=== PATIENT | male | born 1960 | race Caucasian/White ===

== ENCOUNTER 2017-11-30 22:34 | Inpatient (IN) | payer OTHER ==
[2017-11-30 22:43] VITALS: BP 128/75; PULSE 106; RESP 16; TEMP 97.7; O2SAT 100
[2017-11-30] MEDS ORDERED: PROC90TA PO (22:56)
[2017-11-30] MEDS ORDERED: SODIUM CHLORIDE 0.9% FLUSH 10 ML FLUSH IVF PRN (23:00)
[2017-11-30] MEDS ORDERED: SODIUM CHLOR 0.9% 250 ML INJ 250 ML IV ONE (23:00)
[2017-11-30 23:24] VITALS: RESP 16; O2SAT 98
[2017-11-30] MEDS: SODIUM CHLOR 0.9% 1000 ML INJ 1,000 ML IV SCH (23:24)
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
[2017-12-01] VITALS (7 sets, daily range): BP systolic 113–132; BP diastolic 65–78; PULSE 80–107; RESP 16–20; TEMP 98.5–98.7; O2SAT 93–100
[2017-12-01 00:27] LABS: HEMATOCRIT 21.5 % (39.0-51.0)
[2017-12-01 00:33] LABS: HEMOGLOBIN 6.8 GM/DL (13.0-17.0)
[2017-12-01 00:43] LABS: BICARBONATE 30.8 MEQ/L (21.0-32.0); BLOOD UREA NITROGEN 5 MG/DL (7-18); CALCIUM 7.6 MG/DL (8.5-10.1); CHLORIDE 96 MEQ/L (98-107); CREATININE 0.44 MG/DL (0.60-1.30); GLOMERULAR FILTRATION RATE 198 ML/MIN (>89); GLUCOSE,RANDOM 118 MG/DL (74-106); SODIUM (NA) 133 MEQ/L (136-145)
[2017-12-01 00:45] LABS: INTERNATIONAL NORMALIZED RATIO 1.1 RATIO; PROTHROMBIN TIME - PATIENT 11.2 SEC (9.8-11.6)
[2017-12-01] MEDS: SODIUM CHLOR 0.9% 1000 ML INJ 1,000 ML IV SCH ×4 (02:37→21:16)
[2017-12-01] MEDS ORDERED: ONDANSETRON HCL 4 MG/2 ML VIAL IV PUSH ONE (03:30)
[2017-12-01] MEDS ORDERED: MORPHINE SULFATE 2 MG/ML INJ IV PUSH ONE (03:30)
[2017-12-01] MEDS ORDERED: IOHEXOL 350 MG/ML 10 ML VIAL (for RAD DIAG) IVCONTRAST ONE (04:18)
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
[2017-12-01] MEDS ORDERED: ACETAMINOPHEN 325 MG TAB PO PRN (06:00)
[2017-12-01] MEDS ORDERED: LORazepam 2 MG/ML VIAL IV PUSH PRN ×4 (06:00)
[2017-12-01] MEDS ORDERED: FLUMAZENIL 0.5 MG/5 ML VIAL IV PUSH PRN (06:00)
[2017-12-01] MEDS ORDERED: LORazepam 1 MG TAB PO PRN (06:00)
[2017-12-01] MEDS ORDERED: ceFAZolin 2 GM PREMIX 50 ML IV ONE (06:00)
[2017-12-01] MEDS ORDERED: LACTULOSE SYRUP 20 GM/30 ML CUP PO PRN (06:00)
[2017-12-01] MEDS ORDERED: GENTAMICIN 80 MG PREMIX 100 ML IV ONE (06:00)
[2017-12-01] MEDS ORDERED: BISACODYL 10 MG SUPP RECTAL PRN (06:00)
[2017-12-01] MEDS ORDERED: MAGNESIUM HYDROXIDE SUSP 30 ML CUP PO PRN (06:00)
[2017-12-01] MEDS ORDERED: SENNOSIDES 8.6 MG TAB PO PRN (06:00)
[2017-12-01] MEDS ORDERED: SODIUM CHLORIDE 0.9% FLUSH 10 ML FLUSH IV FLUSH PRN (06:00)
[2017-12-01] MEDS ORDERED: ONDANSETRON HCL 4 MG/2 ML VIAL IVP PRN (06:00)
[2017-12-01] MEDS ORDERED: LORazepam 2 MG TAB PO PRN (06:00)
[2017-12-01] MEDS ORDERED: HALOPERIDOL LACTATE 5 MG/ML AMP IM PRN (06:00)
[2017-12-01] MEDS ORDERED: LIDOCAINE HCL 1% PF 30 ML VIAL INFIL ONE (06:45)
[2017-12-01] MEDS ORDERED: LIDOCAINE HCL 1% PF 10 ML VIAL INFIL ONE (06:45)
[2017-12-01] MEDS: ACETAMINOPHEN/HYDROcodone 325 MG/5 MG TAB PO PRN (06:55)
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
[2017-12-01] MEDS ORDERED: NIFEdipine 60 MG SUSTAINED RELEASE TAB PO ONE (10:00)
[2017-12-01] MEDS: DOCUSATE SODIUM 50 MG/SENNA 8.6 MG TAB PO SCH ×2 (13:36→21:14)
[2017-12-01] MEDS: FOLIC ACID 1 MG TAB PO SCH (13:37)
[2017-12-01] MEDS: THIAMINE HCL 100 MG TAB PO SCH (13:37)
[2017-12-01] MEDS: MULTIVITAMINS/MINERALS THERAPEUTIC TAB PO SCH (13:37)
[2017-12-01] MEDS: SODIUM CHLORIDE 0.9% FLUSH 10 ML FLUSH IV FLUSH SCH ×2 (13:39→21:15)
[2017-12-01 16:45] LABS: HEMATOCRIT 25.4 % (39.0-51.0); HEMOGLOBIN 7.7 GM/DL (13.0-17.0)
[2017-12-01] MEDS: MORPHINE SULFATE 2 MG/ML INJ IV PUSH PRN ×2 (17:05→21:15)
[2017-12-01] MEDS: SODIUM CHLOR 0.9% 250 ML INJ 250 ML IV ONE (19:00)
[2017-12-02] VITALS (23 sets, daily range): BP systolic 113–159; BP diastolic 58–95; PULSE 79–193; RESP 16–34; TEMP 96.4–98.8; O2SAT 82–100
[2017-12-02] MEDS: MORPHINE SULFATE 2 MG/ML INJ IV PUSH PRN ×3 (00:39→09:55)
[2017-12-02] MEDS: SODIUM CHLOR 0.9% 250 ML INJ 250 ML IV ONE (00:40)
[2017-12-02] MEDS ORDERED: ADENOSINE IV SOLN 3 MG/ML 2 ML VIAL IV PUSH ONE ×2 (05:00→13:45)
[2017-12-02] MEDS ORDERED: NIFEdipine 90 MG SUSTAINED RELEASE TAB PO SCH (09:00)
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
--- NOTE | 2017-12-02 09:49 | RADRPT ---
EXAM DATE/TIME: 12/01/2017 02:05 [facility] COMPARISON: No previous studies available for comparison. INDICATIONS : Trauma; left knee pain. RADIATION DOSE: 7.29 CTDIvol (mGy) MEDICAL HISTORY : ETOH abuse SURGICAL HISTORY : Back surgery ENCOUNTER: Initial ACUITY: 1 day PAIN SCALE: 6/10 LOCATION: Left knee TECHNIQUE: Volumetric scanning and 3D reconstructions of the knee were performed. Using automated exposure cont rol and adjustment of the mA and/or kV according to patient size, radiation dose was kept as low as r easonably achievable to obtain optimal diagnostic quality images. DICOM format image data is availab le electronically for review and comparison. FINDINGS: BONES: No evidence of fracture. Alignment is within normal limits. JOINTS: There is no definite joint effusion. Mild osteoarthritic changes are noted in the medial and lateral compartments with slight narrowing and minimal spurring. SOFT TISSUES: Muscles, tendons and neurovascular structures are grossly unremarkable. No evidence of mass, organize d fluid collection, or foreign body. There is mild anterior soft tissue swelling and apparent lacerat ion. CONCLUSION: 1. Anterior soft tissue swelling and apparent laceration. 2. Mild osteoarthritic change. 3. No acute fracture or malalignment. Tushar Hernandez MD on December 01, 2017 at 2:20 Board Certified Radiologist. This report was verified electronically.
[2017-12-02] MEDS: MULTIVITAMINS/MINERALS THERAPEUTIC TAB PO SCH (09:53)
[2017-12-02] MEDS: DOCUSATE SODIUM 50 MG/SENNA 8.6 MG TAB PO SCH ×2 (09:54→20:05)
[2017-12-02] MEDS: FOLIC ACID 1 MG TAB PO SCH (09:54)
[2017-12-02] MEDS: SODIUM CHLORIDE 0.9% FLUSH 10 ML FLUSH IV FLUSH SCH ×2 (09:54→20:05)
[2017-12-02] MEDS: THIAMINE HCL 100 MG TAB PO SCH (09:54)
--- NOTE | 2017-12-02 11:33 | RADRPT ---
EXAM DATE/TIME: 12/02/2017 10:30 [facility] COMPARISON: No previous studies available for comparison. INDICATIONS : Syncope. MEDICAL HISTORY : Neck pain. Shortness of breath. Stiffness in lower back. Joint pain. Blood transfusions. SURGICAL HISTORY : Back surgery. ENCOUNTER: Initial ACUITY: 2 days PAIN SCORE: 0/10 LOCATION: Bilateral neck PEAK SYSTOLIC VELOCITIES (cm/sec): ICA/CCA RATIO: Right: 1.4 Left: 1.4 ICA: Right: 158 Left: 160 CCA: Right: 114 Left: 118 ECA: Right: 183 Left: 115 VERTEBRAL: Right: 61 antegrade Left: 59 antegrade Elevated flow velocities and ICA/CCA ratios have been found to correlate with increased degrees of vessel stenosis, calculated as percentage of diameter relative to a normal segment of distal ICA/CCA FINDINGS: RIGHT CAROTID: No significant stenosis is visualized. The waveforms are within normal limits. LEFT CAROTID: No significant stenosis is visualized. The waveforms are within normal limits. VERTEBRAL ARTERIES: Antegrade flow is seen in both vertebral arteries. MISCELLANEOUS: None. CONCLUSION: Normal examination. Alex Cordero MD on December 02, 2017 at 11:19 Board Certified Radiologist. This report was verified electronically.
[2017-12-02] MEDS: SODIUM CHLOR 0.9% 1000 ML INJ 1,000 ML IV SCH (11:47)
[2017-12-02 12:38] LABS: AUTOMATED NEUTROPHIL # 6.4 TH/MM3 (1.8-7.7); BASOPHIL % 0.2 % (0.0-2.0); EOSINOPHIL # 0.1 TH/MM3 (0-0.4); EOSINOPHIL % 1.4 % (0.0-4.0); HEMATOCRIT 28.9 % (39.0-51.0); HEMOGLOBIN 8.9 GM/DL (13.0-17.0); LYMPH % 4.6 % (9.0-44.0); LYMPHOCYTE # 0.4 TH/MM3 (1.0-4.8); MEAN CELL VOLUME 68.7 FL (80.0-100.0); MEAN CORPUSCULAR HEMOGLOBIN 21.1 PG (27.0-34.0); MEAN CORPUSCULAR HGB CONC 30.7 % (32.0-36.0); MONO % 13.1 % (0.0-8.0); NEUT % 80.7 % (16.0-70.0); PLATELET COUNT 277 TH/MM3 (150-450); RED BLOOD COUNT 4.21 MIL/MM3 (4.50-5.90); RED CELL DISTRIBUTION WIDTH 22.2 % (11.6-17.2)
[2017-12-02 13:06] LABS: ALBUMIN 2.7 GM/DL (3.4-5.0); ALKALINE PHOSPHATASE 81 U/L (45-117); ALT (GPT) 33 U/L (12-78); AST (GOT) 32 U/L (15-37); BLOOD UREA NITROGEN 5 MG/DL (7-18); CALCIUM 8.4 MG/DL (8.5-10.1); CHLORIDE 96 MEQ/L (98-107); GLOMERULAR FILTRATION RATE 138 ML/MIN (>89); GLUCOSE,RANDOM 149 MG/DL (74-106); SODIUM (NA) 137 MEQ/L (136-145); TOTAL BILIRUBIN ADULT 0.6 MG/DL (0.2-1.0); TOTAL PROTEIN 6.5 GM/DL (6.4-8.2)
[2017-12-02] MEDS ORDERED: METOPROLOL TARTRATE 5 MG/5 ML VIAL ONE (13:33)
[2017-12-02] MEDS ORDERED: MAGNESIUM SULFATE 1 GM PREMIX 100 ML IV ONE (13:45)
[2017-12-02] MEDS ORDERED: METOPROLOL TARTRATE 5 MG/5 ML VIAL IV PUSH SCH (13:45)
[2017-12-02] MEDS: MUPIROCIN 2% OINT 22 GM TUBE TOPICAL SCH (14:00)
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
[2017-12-02] MEDS ORDERED: ADENOSINE IV PUSH ONE (15:00)
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
[2017-12-02] MEDS ORDERED: FUROSEMIDE 40 MG/4 ML VIAL IV PUSH ONE (16:15)
[2017-12-02] MEDS: PANTOPRAZOLE SODIUM 40 MG VIAL IV PUSH SCH (17:04)
--- NOTE | 2017-12-02 17:22 | RADRPT ---
EXAM DATE/TIME: 12/02/2017 16:31 [facility] COMPARISON: No previous studies available for comparison. INDICATIONS : Short of breath, evaluate for congestive heart failure MEDICAL HISTORY : Congestive heart failure. scoliosis, anemia SURGICAL HISTORY : spinal fusion ENCOUNTER: Subsequent ACUITY: 2 days PAIN SCORE: 0/10 LOCATION: Bilateral chest FINDINGS: 2 AP views of the chest were obtained and demonstrate no confluent infiltrates or effusions. There is mild patchy opacity at the lung bases but no definite consolidation. The heart size is the bony thor ax is intact in appearance. at the limits of normal with no perihilar edema. CONCLUSION: Mild patchy opacity at the lung bases most characteristic of atelectasis and/or scarr ing. There is no evidence of congestive heart failure. Tushar Hernandez MD on December 02, 2017 at 17:18 Board Certified Radiologist. This report was verified electronically.
[2017-12-02 17:28] LABS: CALCIUM 8.2 MG/DL (8.5-10.1); CREATININE 0.42 MG/DL (0.60-1.30)
--- NOTE | 2017-12-02 17:42 | ECHRPT ---
Indication: Cardiomyopathy CONCLUSIONS The left ventricular systolic function is normal with an estimated ejection fraction in the range of 55-60%. Mild concentric left ventricular hypertrophy. Normal left ventricular size. The right ventricle is mildly dilated. The right atrial size is [id number] dilated. There is mild tricuspid valve regurgitation. The estimated pulmonary arterial pressure is 47.5 mmHg. BP: 159 / 95 HR: 95 Rhythm: MEASUREMENTS (Male / Female) Normal Values Technical Quality:Fair 2D ECHO LV Diastolic Diameter PLAX 5.9 cm 4.2 - 5.9 / 3.9 - 5.3 cm LV Systolic Diameter PLAX 4.2 cm IVS Diastolic Thickness 1.3 cm 0.6 - 1.0 / 0.6 - 0.9 cm LVPW Diastolic Thickness 1.3 cm 0.6 - 1.0 / 0.6 - 0.9 cm LV Relative Wall Thickness 0.4 RV Internal Dim ED PLAX 3.8 cm LVOT Diameter 2.5 cm LA Systolic Diameter LX 4.9 cm 3.0 - 4.0 / 2.7 - 3.8 cm M-MODE Aortic Root Diameter MM 3.3 cm LA Systolic Diameter MM 4.7 cm LA Ao Ratio MM 1.4 AV Cusp Separation MM 2.4 cm DOPPLER AV Peak Velocity 185.0 cm/s AV Peak Gradient 13.7 mmHg LVOT Peak Velocity 134.5 cm/s LVOT Peak Gradient 7.2 mmHg LVOT Velocity Time Integral 22.8 cm LVOT Cardiac Index 4462.1 cm/minm AV Area Cont Eq pk 3.6 cm MV Area PHT 4.3 cm Mitral E Point Velocity 94.8 cm/s Mitral A Point Velocity 79.2 cm/s Mitral E to A Ratio 1.2 LV E' Lateral Velocity 11.4 cm/s Mitral E to LV E' Lateral Ratio 8.3 LV E' Septal Velocity 5.8 cm/s Mitral E to LV E' Septal Ratio 16.5 TR Peak Velocity 306.0 cm/s TR Peak Gradient 37.5 mmHg Right Atrial Pressure 10.0 mmHg Pulmonary Artery Systolic Pressu 47.5 mmHg Right Ventricular Systolic Press 47.5 mmHg RVOT Peak Velocity 79.2 cm/s QpQs Shunt Ratio 0.5 FINDINGS LEFT VENTRICLE The left ventricular systolic function is normal with an estimated ejection fraction in the range of 55-60%. Mild concentric left ventricular hypertrophy. Normal left ventricular size. RIGHT VENTRICLE The right ventricle is mildly dilated. LEFT ATRIUM The left atrial size is normal. RIGHT ATRIUM The right atrial size is [id number] dilated. ATRIAL SEPTUM Normal atrial septal thickness without atrial level shunting by limited color doppler interrogation. AORTA The aortic root and proximal ascending aorta are normal in size on limited imaging. MITRAL VALVE Structurally normal mitral valve. No mitral valve stenosis or regurgitation. AORTIC VALVE Trileaflet aortic valve. No aortic valve stenosis or regurgitation. TRICUSPID VALVE Structurally normal tricuspid valve. There is mild tricuspid valve regurgitation. The estimated pulmonary arterial pressure is 47.5 mmHg. PULMONARY VALVE No pulmonary valve regurgitation or stenosis. VESSELS The inferior vena cava is normal in size. PERICARDIUM No pericardial effusion. Gabo Mackenzie MD, FACC (Electronically Signed) Final Date:02 December 2017 17:40
[2017-12-02] MEDS ORDERED: POTASSIUM CHLORIDE 20 MEQ CONTROLLED RELEASE TAB PO ONE (18:30)
[2017-12-02] MEDS: METOPROLOL TARTRATE 25 MG TAB PO SCH (20:05)
[2017-12-02] MEDS: ACETAMINOPHEN/HYDROcodone 325 MG/5 MG TAB PO PRN (20:07)
--- NOTE | 2017-12-02 23:58 | EKG ---
Date Performed: 12/02/2017 Time Performed: 12:56:00 PTAGE: 56 years EKG: Sinus rhythm NORMAL ECG NO PREVIOUS TRACING DOCTOR: Max Obando Interpretating Date/Time 12/02/2017 23:56:29
[2017-12-03] VITALS (22 sets, daily range): BP systolic 110–159; BP diastolic 56–83; PULSE 69–100; RESP 12–26; TEMP 97.9–98.9; O2SAT 69–96
[2017-12-03] MEDS: ACETAMINOPHEN/HYDROcodone 325 MG/5 MG TAB PO PRN ×3 (02:11→19:53)
[2017-12-03] MEDS: PANTOPRAZOLE SODIUM 40 MG VIAL IV PUSH SCH ×2 (04:00→14:28)
[2017-12-03 05:27] LABS: AUTOMATED NEUTROPHIL # 5.9 TH/MM3 (1.8-7.7); BASOPHIL # 0.1 TH/MM3 (0-0.2); BASOPHIL % 0.7 % (0.0-2.0); EOSINOPHIL # 0.3 TH/MM3 (0-0.4); EOSINOPHIL % 3.3 % (0.0-4.0); HEMATOCRIT 27.5 % (39.0-51.0); HEMOGLOBIN 8.6 GM/DL (13.0-17.0); LYMPH % 6.2 % (9.0-44.0); LYMPHOCYTE # 0.5 TH/MM3 (1.0-4.8); MEAN CELL VOLUME 67.6 FL (80.0-100.0); MEAN CORPUSCULAR HEMOGLOBIN 21.1 PG (27.0-34.0); MEAN CORPUSCULAR HGB CONC 31.2 % (32.0-36.0); MONO % 12.5 % (0.0-8.0); MONOCYTE # 0.9 TH/MM3 (0-0.9); NEUT % 77.3 % (16.0-70.0); PLATELET COUNT 261 TH/MM3 (150-450); RED BLOOD COUNT 4.07 MIL/MM3 (4.50-5.90); RED CELL DISTRIBUTION WIDTH 22.7 % (11.6-17.2); WHITE BLOOD COUNT 7.6 TH/MM3 (4.0-11.0)
[2017-12-03 05:48] LABS: CALCIUM 8.3 MG/DL (8.5-10.1); CREATININE 0.5 MG/DL (0.60-1.30); MAGNESIUM 1.8 MG/DL (1.5-2.5)
[2017-12-03 05:58] LABS: CHOLESTEROL/ HDL RATIO 2.16 RATIO; HDL CHOLESTEROL 54.4 MG/DL (40.0-60.0)
[2017-12-03] MEDS ORDERED: POTASSIUM CHLORIDE 20 MEQ CONTROLLED RELEASE TAB PO ONE (06:30)
[2017-12-03] MEDS: THIAMINE HCL 100 MG TAB PO SCH (08:44)
[2017-12-03] MEDS: DOCUSATE SODIUM 50 MG/SENNA 8.6 MG TAB PO SCH ×2 (08:44→19:53)
[2017-12-03] MEDS: FOLIC ACID 1 MG TAB PO SCH (08:44)
[2017-12-03] MEDS: METOPROLOL TARTRATE 25 MG TAB PO SCH ×2 (08:44→19:53)
[2017-12-03] MEDS: MULTIVITAMINS/MINERALS THERAPEUTIC TAB PO SCH (08:44)
[2017-12-03] MEDS: SODIUM CHLORIDE 0.9% FLUSH 10 ML FLUSH IV FLUSH SCH ×2 (08:44→19:53)
[2017-12-03] MEDS: MUPIROCIN 2% OINT 22 GM TUBE TOPICAL SCH (08:45)
--- NOTE | 2017-12-03 11:28 | HHI.GIFU ---
Subjective Remarks Pt complaining of right sided abdominal pain, worse under his ribcage, states he is unable to lay on that side Denies nausea, vomiting No BM yesterday or today Tolerating PO, ate most of his breakfast (Anastasia Mcmahon) Objective Vitals I&O Vital Signs Date Time Temp Pulse Resp B/P (MAP) Pulse Ox O2 Delivery O2 Flow Rate FiO2 12/03/17 10:00 74 12 115/56 (75) 94 12/03/17 10:00 74 12/03/17 09:30 93 High Flow Nasal Cannula 30.00 55 12/03/17 09:01 95 12/03/17 09:01 95 19 147/77 (100) 92 12/03/17 09:00 98 12/03/17 09:00 98 23 91 12/03/17 08:00 69 12/03/17 08:00 97.9 69 19 118/56 (76) 69 12/03/17 07:00 93 Nasal Cannula 30.00 65 12/03/17 06:00 71 12/03/17 04:05 18 12/03/17 04:00 98.3 71 14 117/61 (79) 91 12/03/17 04:00 71 12/03/17 02:00 72 12/03/17 01:00 90 High Flow Nasal Cannula 30.00 65 12/03/17 00:00 78 12/03/17 00:00 98.5 78 25 115/80 (92) 95 12/02/17 22:00 79 12/02/17 20:12 95 High Flow Nasal Cannula 25.00 35 12/02/17 20:00 85 12/02/17 20:00 98.7 85 18 113/58 (76) 94 12/02/17 19:00 93 Nasal Cannula 25.00 65 12/02/17 19:00 87 12/02/17 18:00 84 20 125/65 (85) 95 12/02/17 18:00 84 12/02/17 17:03 104 12/02/17 17:03 104 26 151/87 (108) 90 12/02/17 17:00 100 12/02/17 17:00 100 34 125/65 (85) 83 12/02/17 16:42 96 22 117/64 (81) 94 3/26/18 16:42 96 12/02/17 16:00 98 12/02/17 16:00 98.6 98 25 133/86 (102) 88 12/02/17 15:00 101 12/02/17 15:00 101 29 82 12/02/17 13:59 98.4 93 19 133/86 (102) 92 12/02/17 13:37 98.3 189 16 151/91 (111) 96 12/02/17 13:19 193 I/O 12/02/17 12/02/17 12/02/17 12/03/17 12/03/17 12/03/17 07:00 15:00 23:00 07:00 15:00 23:00 Intake Total 660 ml 340 ml 800 ml Output Total 2550 ml 750 ml 2050 ml Balance -1890 ml -410 ml -1250 ml Intake Oral 240 ml 240 ml 800 ml IV Total 100 ml Packed Cells 400 ml Blood Product IV Normal Saline Flush 20 ml Output Urine Total 2550 ml 750 ml 2050 ml # Bowel Movements 0 0 0 Laboratory Laboratory Tests Test 12/02/17 11:57 12/02/17 16:00 12/02/17 16:35 12/03/17 04:20 White Blood Count 8.0 7.6 Red Blood Count 4.21 4.07 Hemoglobin 8.9 8.6 Hematocrit 28.9 27.5 Mean Corpuscular Volume 68.7 67.6 Mean Corpuscular Hemoglobin 21.1 21.1 Mean Corpuscular Hemoglobin Concent 30.7 31.2 Red Cell Distribution Width 22.2 22.7 Platelet Count 277 261 Mean Platelet Volume 7.0 7.0 Neutrophils (%) (Auto) 80.7 77.3 Lymphocytes (%) (Auto) 4.6 6.2 Monocytes (%) (Auto) 13.1 12.5 Eosinophils (%) (Auto) 1.4 3.3 Basophils (%) (Auto) 0.2 0.7 Neutrophils # (Auto) 6.4 5.9 Lymphocytes # (Auto) 0.4 0.5 Monocytes # (Auto) 1.0 0.9 Eosinophils # (Auto) 0.1 0.3 Basophils # (Auto) 0.0 0.1 CBC Comment DIFF FINAL DIFF FINAL Differential Comment Blood Urea Nitrogen 5 6 5 Creatinine 0.60 0.42 0.50 Random Glucose 149 122 105 Total Protein 6.5 Albumin 2.7 Calcium Level 8.4 8.2 8.3 Alkaline Phosphatase 81 Aspartate Amino Transf (AST/SGOT) 32 Alanine Aminotransferase (ALT/SGPT) 33 Total Bilirubin 0.6 Sodium Level 137 136 135 Potassium Level 3.4 3.3 3.1 Chloride Level 96 96 95 Carbon Dioxide Level 36.0 33.0 34.0 Anion Gap 5 7 6 Estimat Glomerular Filtration Rate 138 209 171 B-Type Natriuretic Peptide 168 Blood Gas Puncture Site RT RADIAL Blood Gas Patient Temperature 98.6 Blood Gas HCO3 33 Blood Gas Base Excess 8.5 Blood Gas Oxygen Saturation 87 Arterial Blood pH 7.46 Arterial Blood Partial Pressure CO2 47 Arterial Blood Partial Pressure O2 57 Arterial Blood Oxygen Content 10.3 Arterial Blood Carboxyhemoglobin 2.2 Arterial Blood Methemoglobin 1.2 Blood Gas Hemoglobin 8.4 Oxygen Delivery Device Venti Mask Blood Gas Liter Flow 7 Blood Gas Inspired Oxygen 50 Magnesium Level 1.8 Triglycerides Level 59 Cholesterol Level 118 LDL Cholesterol 52 HDL Cholesterol 54.4 Cholesterol/HDL Ratio 2.16 Thyroid Stimulating Hormone 3rd Gen 2.010 Imaging Last Impressions Chest X-Ray 12/02/17 0000 Signed Impressions: Service Date/Time: Saturday, December 02, 2017 16:31 - CONCLUSION: Mild patchy opacity at the lung bases most characteristic of atelectasis and/or scarring. There is no evidence of congestive heart failure. Tushar Hernandez MD Carotid Artery Ultrasound 12/02/17 0000 Signed Impressions: Service Date/Time: Saturday, December 02, 2017 10:30 - CONCLUSION: Normal examination. Alex Cordero MD Lower Extremity CT 12/01/17 0223 Signed Impressions: Service Date/Time: Friday, December 01, 2017 02:05 - CONCLUSION: 1. Anterior soft tissue swelling and apparent laceration. 2. Mild osteoarthritic change. 3. No acute fracture or malalignment. Tushar Hernandez MD Abdomen/Pelvis CT 12/01/17 0000 Signed Impressions: Service Date/Time: Friday, December 01, 2017 04:09 - CONCLUSION: 1. Negative trauma study with no evidence of visceral injury. 2. Nonobstructing right renal calculus. 3. Small periumbilical hernia containing mesenteric fat. 4. Old granulomatous disease. Tushar Hernandez MD Physical Exam HEENT: Normocephalic; atraumatic CHEST: High flow NC. Even/unlabored CARDIAC: RRR ABDOMEN: Distended, semi-firm, RUQ TTP, bowel sounds active EXTREMITIES: No clubbing, cyanosis, or edema. SKIN: Normal; no rash; no jaundice. [employer]: No focal deficits; alert and oriented times three. (Anastasia Mcmahon) Assessment and Plan Plan Assessment: - Anemia- microcytic, hypochromic- unclear etiology- Denies history of anemia. Denies any GI symptoms including acid reflux, heartburn, dysphagia, odynophagia, abdominal pain, weight loss, constipation, diarrhea, nausea, vomiting, BRBPR. H/H currently 8.9/28.9. Hgb was 6.8 on arrival now S/P 2 U PRBCs Has never had EGD Reports last colonoscopy was approx 3 years ago- normal but history of polyp. ETOH- 6-8 beers a day Denies NSAIDs, blood thinners. - SVT- S/P adenosine and cardioversion- now RRR- undergoing cardiac work up - Decreasing O2 sats during my exam- O2 increased to 6 L via NC- O2 sats continue to be in mid 80s (12/03) Pt remains in ICU now on high flow NC, HR regular and controlled. Pt does reports right sided abdominal pain, mostly under his ribcage, states unable to sleep on his right side due to pain. Cardiology follow up from today is pending, will continue to follow to determine timing for procedures dependent on cardiology work up. H/H stable from yesterday, no emesis or BM, no need for emergent GI procedures at this time Plan: Too unstable for GI procedures at this time Hemoccult stool can be done to evaluate Monitor H/H Transfuse as needed Protonix Will continue to follow to determine timing of procedure based on cardiac work up Pt has been seen and examined by myself and Dr. Mcmahon and this note is written on his behalf (Anastasia Mcmahon) Physician Comments Patient seen and examined Agree with above Continue with current supportive care Monitor labs (Jaiden Mcmahon MD) Anastasia Mcmahon Dec 03, 2017 11:28 Jaiden Mcmahon MD Dec 03, 2017 20:46
[2017-12-03] MEDS ORDERED: POTASSIUM CHLORIDE 25 MEQ EFFERVESCENT TAB PO PRN (12:30)
[2017-12-03] MEDS ORDERED: POTASSIUM CHLOR 20 MEQ PREMIX 100 ML IV PRN (12:30)
[2017-12-03] MEDS ORDERED: POTASSIUM PHOSPHATE MONOBASIC 500 MG TAB PO PRN (12:30)
[2017-12-03] MEDS ORDERED: MAGNESIUM SULFATE INJ 2 GM in SODIUM CHLORIDE 0.9% INJ 96 ML IV PRN (12:30)
[2017-12-03] MEDS ORDERED: SODIUM PHOSPHATE INJ 30 MMOL in SODIUM CHLOR 0.9% 250 ML INJ 240 ML IV PRN (12:30)
[2017-12-03] MEDS ORDERED: POTASSIUM CHLOR 40 MEQ PREMIX 100 ML IV PRN ×2 (12:30)
[2017-12-03] MEDS ORDERED: MAGNESIUM OXIDE 400 MG TAB PO PRN (12:30)
[2017-12-03] MEDS ORDERED: MAGNESIUM SULFATE INJ 4 GM in SODIUM CHLORIDE 0.9% INJ 92 ML IV PRN (12:30)
[2017-12-03] MEDS ORDERED: POTASSIUM PHOSPHATE MONOBASIC 500 MG TAB PO/TUBE PRN (12:30)
[2017-12-03] MEDS ORDERED: NALOXONE HCL 0.4 MG/ML AMP IV PUSH PRN (12:45)
[2017-12-03] MEDS ORDERED: SENNOSIDES 8.6 MG TAB PO PRN (12:45)
[2017-12-03] MEDS ORDERED: LACTULOSE SYRUP 20 GM/30 ML CUP PO PRN (12:45)
[2017-12-03] MEDS ORDERED: MAGNESIUM HYDROXIDE SUSP 30 ML CUP PO PRN (12:45)
[2017-12-03] MEDS ORDERED: BISACODYL 10 MG SUPP RECTAL PRN (12:45)
[2017-12-03] MEDS: POTASSIUM CHLOR 20 MEQ PREMIX 100 ML IV PRN ×4 (14:28→21:35)
--- NOTE | 2017-12-03 14:38 | EKG ---
Date Performed: 12/02/2017 Time Performed: 13:38:32 PTAGE: 56 years EKG: SUPRAVENTRICULAR TACHYCARDIA ST DEVIATION AND MODERATE T-WAVE ABNORMALITY, CONSIDER INFERIO R ISCHEMIA ABNORMAL ECG Clinical correlation is recommended PREVIOUS TRACING : 12/02/17 12:56 DOCTOR: Yefri Bernal Interpretating Date/Time 12/03/2017 14:42:50
--- NOTE | 2017-12-03 14:39 | EKG ---
Date Performed: 12/02/2017 Time Performed: 13:39:03 PTAGE: 56 years EKG: ATRIAL FIBRILLATION WITH RAPID VENTRICULAR RESPONSE ABNORMAL RHYTHM ECG Compared to PREVIOUS TRACING rate has decreased and ST-T changes have improved PREVIOUS TRACIN/2 02/24 13:38 DOCTOR: Yefri Bernal Interpretating Date/Time 12/03/2017 14:37:20
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
[2017-12-04] VITALS (11 sets, daily range): BP systolic 131–151; BP diastolic 64–87; PULSE 72–101; RESP 11–18; TEMP 98–99.2; O2SAT 92–99
[2017-12-04] MEDS: ACETAMINOPHEN/HYDROcodone 325 MG/5 MG TAB PO PRN ×3 (00:48→15:54)
[2017-12-04] MEDS: PANTOPRAZOLE SODIUM 40 MG VIAL IV PUSH SCH ×2 (04:00→15:50)
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
[2017-12-04 08:35] LABS: AUTOMATED NEUTROPHIL # 4.3 TH/MM3 (1.8-7.7); BASOPHIL % 0.3 % (0.0-2.0); EOSINOPHIL # 0.3 TH/MM3 (0-0.4); EOSINOPHIL % 5.7 % (0.0-4.0); HEMATOCRIT 27.8 % (39.0-51.0); HEMOGLOBIN 8.4 GM/DL (13.0-17.0); LYMPH % 7.1 % (9.0-44.0); LYMPHOCYTE # 0.4 TH/MM3 (1.0-4.8); MEAN CELL VOLUME 69.3 FL (80.0-100.0); MEAN CORPUSCULAR HGB CONC 30.3 % (32.0-36.0); MEAN PLATELET VOLUME 6.8 FL (7.0-11.0); MONO % 15.1 % (0.0-8.0); MONOCYTE # 0.9 TH/MM3 (0-0.9); NEUT % 71.8 % (16.0-70.0); PLATELET COUNT 264 TH/MM3 (150-450); RED BLOOD COUNT 4.01 MIL/MM3 (4.50-5.90); RED CELL DISTRIBUTION WIDTH 23.4 % (11.6-17.2)
[2017-12-04] MEDS ORDERED: PERI PO (08:56)
[2017-12-04] MEDS ORDERED: NORC5TAB PO (08:56)
[2017-12-04] MEDS ORDERED: METO25TA3 PO (08:56)
[2017-12-04] MEDS ORDERED: THIA100 PO (08:56)
[2017-12-04] MEDS ORDERED: FOLI1TAB6 PO (08:56)
[2017-12-04] MEDS ORDERED: THERM PO (08:56)
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
[2017-12-04 08:59] LABS: BICARBONATE 34.9 MEQ/L (21.0-32.0); CALCIUM 8.6 MG/DL (8.5-10.1); CREATININE 0.54 MG/DL (0.60-1.30)
[2017-12-04] MEDS: THIAMINE HCL 100 MG TAB PO SCH (09:00)
[2017-12-04] MEDS: METOPROLOL TARTRATE 25 MG TAB PO SCH (09:00)
[2017-12-04] MEDS: FOLIC ACID 1 MG TAB PO SCH (09:00)
[2017-12-04] MEDS: DOCUSATE SODIUM 50 MG/SENNA 8.6 MG TAB PO SCH (09:00)
[2017-12-04] MEDS: MUPIROCIN 2% OINT 22 GM TUBE TOPICAL SCH (09:00)
[2017-12-04] MEDS: MULTIVITAMINS/MINERALS THERAPEUTIC TAB PO SCH (09:00)
[2017-12-04] MEDS: SODIUM CHLORIDE 0.9% FLUSH 10 ML FLUSH IV FLUSH SCH (09:00)
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
[2017-12-04] MEDS ORDERED: FERR325T18 PO (17:31)
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
== END 2017-12-04 20:26 | disposition home or self-care (01) | DRG 812 ==
LOC: NEPC 22:34 → NEDA 12-01 05:20 → NEPHCDU 12-01 07:55 → OBSVTOIN 12-02 13:44 → HIMN 12-02 14:20
PROVIDERS: ADMIT Hospitalist; ATTEND Hospitalist
PROC: 0HQLXZZ Repair Left Lower Leg Skin, External Approach (ICD-10-PCS; principal; 2017-11-30)
PROC: 30233N1 Transfusion of Nonautologous Red Blood Cells into Peripheral Vein, Percutaneous Approach (ICD-10-PCS; 2017-12-01)
DX: D62 Acute posthemorrhagic anemia (principal); I47.1 Supraventricular tachycardia; S81.012A Laceration without foreign body, left knee, initial encounter; J45.909 Unspecified asthma, uncomplicated; R55 Syncope and collapse; E87.6 Hypokalemia; F10.10 Alcohol abuse, uncomplicated; M19.90 Unspecified osteoarthritis, unspecified site; Y92.410 Unspecified street and highway as the place of occurrence of the external cause; V43.52XA Car driver injured in collision with other type car in traffic accident, initial encounter
CPT/HCPCS: 12002; 36430; 36600; 71045; 73700; 74177; 80048; 80053; 80061; 80307; 82805; 82948; 83735; 83880; 84100; 84443; 85014; 85018; 85025; 85610; 85730; 86850; 86900; 86901; 86920; 93005; 93306; 93880; 96361; 96365; 96366; 96367; 96375; 96376; C9113; G0378; G8987-GP; G8988-GP; J0153; J0690; J1580; J1940; J2270; J3475; J3480; J7030; J7050; P9016; Q9967